=== PATIENT | male | born 1960 | race Hispanic/Latino ===

== ENCOUNTER 2020-01-17 18:23 | Inpatient (IN) | payer BC ==
--- OUTSIDE RECORDS SUMMARY | 2020-01-17 18:25 | XMS REPORT | Continuity of Care Document ---
:1960 Author Organization [facility] t Address [address] [place] [address] Care Team Providers Name Role Phone Jayy Bloom Attending Clinician Lab, Adc Fam Pob I Attending Clinician Unavailable Doctor Unassigned, Name Attending Clinician Unavailable Problems Condition Condition Condition Status Onset Resolution Last Treating Co mments Source Name Details Category Date Date Treatment Clinician Date Hyperlipid Hyperlipid Problem Active [facility] Heel pain Heel pain Problem [facility] Degenerati Degenerati Problem Active [facility] on of [facility] - lumbar or lumbar or Jacques kyle lumbosacra lumbosacra l l l Outpati interverte interverte en t bral disc bral disc Clin ics Carpal Carpal Problem Active [facility] tunnel tunnel [facility] - syndrome syndrome Memori a of left of left l wrist wrist [facility] Personal Personal Problem Active [facility] history of history of Sabrina kes - colonic colonic Memoria polyps polyps l [facility] Vitamin D Vitamin D Problem Active [facility] deficiency deficiency Sabrina kes - [facility]oria [facility] Carpal Carpal Problem Active [facility] tunnel tunnel [facility] - syndrome syndrome Memori a l [facility] Hemorrhoid Hemorrhoid Problem Active [facility] Nonalcohol Nonalcohol Problem Active C [facility] ic fatty ic fatty [facility] - liver liver Memoria disease disease l [facility] BPH BPH Problem Active [facility] without without [facility] - urinary urinary Memoria obstructio obstructio l n n [facility] Carpal Carpal Problem Active [facility] tunnel tunnel [facility] - syndrome syndrome Memori a of right of right l wrist wrist [facility] Upper Upper Diagnosis Active [facility] respirator respirator Sabrina kes - y tract y tract Memoria infection, infection, l unspecifie unspecifie Ou tpati d type d type ent Clinics Real time Real time Diagnosis Active C [facility] reverse reverse [facility] - transcript transcript Me moria ase PCR ase PCR l positive positive Outpat i for for ent COVID-19 COVID-19 Clinic s virus virus Nausea Nausea Diagnosis Active [facility] Allergies, Adverse Reactions, Alerts This patient has no known allergies or adverse reactions. Medications Ordered Filled Start Stop Current Ordering Indication Dosage Frequency Signature Comments Components Source Medication Medication Date Date Medication? Clinician (SIG) Name Name Ondansetron Ondansetron Yes Geovany [address] [facility] [address] HCl HCl 7-28 Alvarado as needed [facility] - 00:[facility]: Memoria 00 [facility] Benzonatate Benzonatate 2019- Yes Geovany [address] [facility] 7-28 08-27 Alvarado as needed [facility] - 00:[facility]: 00:00 for Cough Memoria 00 :00 [facility] Yes Geovany [address] [facility] Sodium Sodium 1-17 Alvarado [facility]: [facility] 00 [facility] Viagra Viagra Yes Geovany 1 tablet [facility] Immunizations Ordered Filled Immunization Date Status Comments Sour e Immunization Name Name Afluria single dose Afluria single dose 2019-04-[address] [facility]00 [facility] Out[facility] Procedures This patient has no known procedures. Encounters Start End Encounter Admission Attending Care Care Encounter Source Date/Time Date/Time Type Type Clinicians Facility Department ID 2020-01-12 2020-01-12 Outpatient Anthony Bolton [id number] [facility] 08:15:00 08:15:00 [employer]es s [employer] AS [facility] 2020-01-10 2020-01-10 Telephone ELOISA Kemp [id number] 00:00:00 00:00:00 Ranlyric LUBIN [id number] H[facility]PITAL [id number] 2020-01-09 2020-01-09 Laboratory Lab, Adc [facility] [id number] 12:33:36 12:53:36 Only Fam Pob I Health [id number] [place] [id number] Professio [id number] nal [address] 2020-01-09 2020-01-09 Letter Doctor ELOISA [id number] 00:00:00 00:00:00 (Out) Unassigned, TRISTIAN [id number] [place] [facility] [id number] 2019-07-03 2019-07-03 [facility] [id number] [address] 16:18:00 16:18:00 t [facility] - [facility] Medicine Outpati ent Clinics 2019-07-03 2019-07-03 [facility] [id number] [address] 10:00:00 10:00:00 t [facility] [employer] [facility] Medicine Outpati ent Clinics 2019-05-25 2019-05-25 [facility] [id number] 16:45:00 16:45:00 t [facility] - [employer] [facility] Medicine Outpati ent Clinics 2019-04-24 2019-04-24 [facility] [id number] 08:15:00 08:15:00 t Liz[facility] [employer] [facility] Medicine Outpati ent Clinics Results This patient has no known results.
--- OUTSIDE RECORDS SUMMARY | 2020-01-17 18:25 | XMS REPORT | Summary of Care ---
:1960 Author Organization [facility] Address [address] [place] [address] Care Team Providers Name Role Phone Unavailable Primary Care Provider Unavailable Reason for Visit Reason Comments Exposure Encounter Details Date Type Department Care Team Description 01/09/2020 Laboratory Only [facility] Family Dawson Mederos, MEDICAL AND HEALTH SERVICES MANAGER [address] [place] [id number] Suspected Covid-19 [facility] Lab, Adc Fam Pob I Virus Infection [address] [place] [address] (Primary D x) [place] [address] Allergies Not on Filedocumented as of this encounter (statuses as of 01/09/2020) Medications Not on filedocumented as of this encounter (statuses as of 01/09/2020) Active Problems Not on filedocumented as of this encounter (statuses as of 01/09/2020) Social History Tobacco Use Types Packs/Day Years Used Date Never Assessed Sex Assigned at Date Recorded Not on file Job Start Date Occupation Industry Not on file Not on file Not on file Travel History Travel Start Travel End No recent travel history available. COVID-19 Exposure Response Date Recorded In the last month, have you been in contact with Yes 01/09/2020 12:35 PM CDT someone who was confirmed or suspected to have Coronavirus / COVID-19? documented as of this encounter Last Filed Vital Signs Not on filedocumented in this encounter Plan of Treatment Name Type Priority Associated Diagnoses Order S chedule COVID-19 (PCR MOLECULAR LAB Routine Suspected Covid-1 9 Virus Expected: 01/09/2020, TESTING) Infection Expires: 2020 Health Maintenance Due Date Last Done Comments HEPATITIS C (HCV) SCREEN 1960 DTaP,Tdap,and Td Vaccines (1 - 09/21/1970 Tdap) Depression Screening 1971 COLONOSCOPY 09/21/2009 Zoster Recombinant Vaccine 09/21/2009 (SHINGRIX) (1 of 2) INFLUENZA VACCINE (#1) 2020 PNEUMOCOCCAL 0-64 YEARS COMBINED Aged Out No longer eligible based on SERIES patient's age to complete this topic documented as of this encounter Results Not on filedocumented in this encounter Visit Diagnoses Diagnosis Suspected Covid-19 Virus Infection - [facility] documented in this encounter Additional Health Concerns Infection Onset Date Last Indicated Resolved Time COVID-19 Rule Out 01/09/2020 01/09/2020 documented as of this encounter Insurance Payer Benefit Plan Subscriber ID Effective Dates Phone Address Type / Group [facility] [id number] 2014-Sally [phone] [address] [place]/POS [place] t 7 [id number] [place] [address] [phone] (Work) documented as of this encounter
--- OUTSIDE RECORDS SUMMARY | 2020-01-17 18:25 | XMS REPORT ---
:1960 Author Organization [employer] Care Team Providers Name Role Phone Geovany Alvarado Provider Role Unavailable Allergies, Adverse Reactions, Alerts Substance Reaction Event Type N.K.D.A. Info Not Available Non Drug Allergy Problems Problem Type Condition Code Onset Dates Condition Statu s Problem Hyperlipidemia E78.5 Active Problem Heel pain M79.673 Active Problem Degeneration of lumbar or M51.37 Ac tive lumbosacral intervertebral disc Problem Carpal tunnel syndrome of left G56.02 Active wrist Problem Personal history of colonic polyps Z86.010 Active Problem Vitamin D deficiency E55.9 Active Problem Carpal tunnel syndrome G56.00 Activ e Problem Hemorrhoids K64.9 Active Problem Nonalcoholic fatty liver disease K76.0 Active Problem BPH without urinary obstruction N40.0 Active Assessment Upper respiratory tract infection, J06.9 Active unspecified type Assessment Real time reverse transcriptase PCR U07.1 Active positive for COVID-19 virus Assessment Nausea R11.0 Active Problem Carpal tunnel syndrome of right G56.01 Active wrist Medications Medication Code Code Instructions Start End Status Dosage System Date Date Montelukast [facility] 67303107816 10 MG Orally Jul 03, Active 1 t ablet Sodium Once a day 2019 Ondansetron HCl ND 80873386998 4 MG Orally TID January 11, Act giuseppe 1 tablet PRN Nausea 2019 as needed Viagra ND 70204964446 50 MG Orally Active 1 table t Once a day as needed Benzonatate ND 26627034809 200 MG Orally January 11Feb 10, Active 1 capsule Three times a 2019 2019 as needed day for Cough Results No Known Results Summary Purpose [employer] Submission
--- OUTSIDE RECORDS SUMMARY | 2020-01-17 18:25 | XMS REPORT | Summary of Care ---
:1960 Author Organization [facility] - Health Address [address] [place] [address] Care Team Providers Name Role Phone Unavailable Primary Care Provider Unavailable Encounter Details Date Type Department Care Team Description 01/09/2020 Letter (Out) [facility] MyChart Message s Doctor Unassigned, No 301 [facility] [place] [phone] [facility] [phone] [place] [address] Allergies Not on Filedocumented as of this [...] Travel End No recent travel history available. documented as of this encounter Last Filed Vital Signs Not on filedocumented in this encounter Plan of Treatment Date Type Specialty Care Team Description 01/09/2020 Laboratory Only Family Medicine Samantha Mederos FNP [address] [address] Arrived Lab, Adc Fam Pob I Health Maintenance Due Date Last Done Comments [...] Results Not on filedocumented in this encounter Insurance Payer Benefit Plan Subscriber ID Effective Dates Phone Address Type / Group [facility] [id number] 2014-Sally [phone] [address] P[place]/POS [place] t 7 [id number] documented as of this encounter
--- OUTSIDE RECORDS SUMMARY | 2020-01-17 18:25 | XMS REPORT | Summary of Care ---
:1960 Author Organization [facility] Address [address] [place] [address] Care Team Providers Name Role Phone Unavailable Primary Care Provider Unavailable Reason for Visit Reason Comments Results Encounter Details Date Type Department Care Team Description 01/10/2020 Telephone [facility] Jayy Kemp FNP Results [address] [phone] [place], [place] [address] Allergies Not on Filedocumented as of this encounter (statuses as of 01/10/2020) Medications Not on filedocumented as of this encounter (statuses as of 01/10/2020) Active Problems Not on filedocumented as of this encounter (statuses as of 01/10/2020) Social History Tobacco Use Types Packs/Day Years [...] filedocumented in this encounter Plan of Treatment Health Maintenance Due Date Last Done Comments [...] Results Not on filedocumented in this encounter Additional Health Concerns Infection Onset Date Last Indicated Resolved Time COVID-19 Rule Out 01/09/2020 01/09/2020 01/10/2020 2: 23 AM CDT COVID-19 Confirmed 01/09/2020 01/09/2020 documented as of this encounter Insurance Payer Benefit Plan Subscriber ID Effective Dates Phone Address Type / Group BCBS OF [facility] [id number] 2014-Sally [phone] [address] PPO/POS [place] t 7 [id number] [place] [address] documented as of this encounter
[2020-01-17] MEDS ORDERED: AZITHROMYCIN 500 MG INJ IVPB ONE (19:28)
[2020-01-17] MEDS ORDERED: NA CHLORIDE 0.9% 250 ML ONE (19:28)
[2020-01-17] MEDS ORDERED: ACETAMINOPHEN 500 MG TAB ONE (19:28)
[2020-01-17] MEDS ORDERED: dexAMETHasone 10 MG/ML VIAL ONE (19:28)
[2020-01-17] MEDS ORDERED: NA CHLORIDE 0.9% 1,000 ML ONE (19:29)
[2020-01-17] MEDS ORDERED: ALBUTEROL INHALER 60 PUFF/8 GM IH ONE (19:29)
[2020-01-17 19:59] LABS: Absolute Lymphocytes (CBC) 0.7 K/uL (0.7-4.9); Basophils % 0.2 % (0-1.3); Lymphocytes % 7.9 % (15.3-44.8); MPV 7.2 fL (7.6-11.3)
[2020-01-17 20:09] LABS: Protime INR 1.41
[2020-01-17 20:20] LABS: ALT/SGPT 62 U/L (12-78); AST/SGOT 50 U/L (15-37); Albumin 2.5 g/dL (3.4-5.0); Alkaline Phosphatase 141 U/L (45-117); BUN Blood Urea Nitrogen 10 mg/dL (7-18); Bicarbonate 25 mmol/L (21-32); Bilirubin Direct 0.4 mg/dL (0-0.2); Glucose Level 106 mg/dL (74-106); Magnesium 2.4 mg/dL (1.8-2.4); NT PRO-BNP 161 pg/mL (<125); Potassium 4.2 mmol/L (3.5-5.1); Protein, Total 8.1 g/dL (6.4-8.2); Sodium Level 136 mmol/L (136-145); Troponin (Emerg Dept Use Only) < 0.02 ng/mL (0.0-0.045)
--- NOTE | 2020-01-17 20:43 | EDPHYS ---
Physician Documentation [facility] Name: Richard Ramos Age: 59 yrs Sex: Male : 1960 Arrival Date: 01/17/2020 Time: 18:26 Bed 2 Private MD: ED Physician Pastor Gan HPI: 01/16 18:59 This 59 yrs old Male presents to ER via Ambulatory with complaints of Covid+, cp Low Oxygen, Headache, Diarrhea. 18:59 The patient has shortness of breath at rest. cp 18:59 Onset: The symptoms/episode began/occurred 1 week(s) ago. cp 18:59 Duration: The symptoms are continuous, and are steadily getting worse. cp 19:00 The patient's shortness of breath is aggravated by light activity, talking. Associated cp signs and symptoms: Pertinent positives: non-productive cough, Pertinent negatives: chest pain, diaphoresis, fever. Severity of symptoms: in the emergency department the symptoms are unchanged despite home interventions. Historical: - Allergies: 18:34 No Known Allergies; ll1 - PMHx: 18:34 Bronchitis; ll1 - PSHx: 18:34 herniated disc repair; Hernia repair; ll1 - Immunization history:: Flu vaccine is up to date. - Social history:: Smoking status: Patient denies any tobacco usage or history of. Patient/guardian denies using alcohol, street drugs, tobacco products. ROS: 19:05 Constitutional: Negative for body aches, chills, fever, poor PO intake. cp 19:05 Eyes: Negative for injury, pain, redness, and discharge. cp 19:05 ENT: Negative for ear pain, sore throat, difficulty swallowing, difficulty handling secretions. 19:05 Neck: Negative for stiffness. 19:05 Cardiovascular: Negative for chest pain, edema, palpitations. 19:05 Respiratory: Positive for cough, "sounds productive", shortness of breath, at rest. Negative for wheezing. 19:05 Abdomen/GI: Negative for abdominal pain, nausea, vomiting, and diarrhea. 19:05 Back: Negative for radiated pain. 19:05 Skin: Negative for rash. 19:05 Neuro: Negative for altered mental status, headache, syncope, weakness. 19:05 All other systems are negative. Exam: 19:12 Head/Face: Normocephalic, atraumatic. cp 19:12 Constitutional: The patient appears alert, awake, non-diaphoretic, non-toxic, well developed, well nourished, in obvious distress, mildly distressed. 19:12 Eyes: Periorbital structures: appear normal, Pupils: equal, round, and reactive to cp light and accomodation, Extraocular movements: intact throughout, Conjunctiva: normal, no exudate, no injection, Sclera: no appreciated abnormality, Lids and lashes: appear normal, bilaterally. 19:12 ENT: External ear(s): are unremarkable, Nose: is normal, Mouth: Lips: moist, Oral mucosa: pink and intact, moist, Posterior pharynx: is normal, airway is patent, no erythema, no exudate. 19:12 Neck: ROM/movement: is normal, is supple, without pain, no range of motions limitations, no meningismus, Lymph nodes: no appreciated lymphadenopathy. 19:12 Chest/axilla: Inspection: normal, Palpation: is normal, no crepitus, no tenderness. 19:12 Cardiovascular: Rate: normal, Rhythm: regular, Heart sounds: murmur, not appreciated, rub, not appreciated, gallop, not appreciated, Edema: is not appreciated, JVD: is not appreciated. 19:12 Respiratory: mild respiratory distress is noted, Respirations: labored breathing, that is mild, accessory muscle usage, is absent, intercostal retractions, are absent, shallow respirations, that is mild, tachypnea, that is mild, Breath sounds: bronchial sounds, that are mild, are heard diffusely, stridor, is not appreciated, + upper airway congestion. wheezing: is not appreciated. 19:12 Abdomen/GI: Inspection: abdomen appears normal, Bowel sounds: active, all quadrants, Palpation: abdomen is soft and non-tender, in all quadrants. 19:12 Back: pain, is absent, ROM is normal. 19:12 Skin: no rash present. 19:12 Neuro: Orientation: to person, place \\T\\ time. Mentation: is normal, Cerebellar function: is grossly normal, Motor: moves all fours, strength is normal, Sensation: is normal. 19:46 ECG was reviewed by the Attending Physician. Vital Signs: 18:30 BP 150 / 82; Pulse 93; Resp 22; Temp 98.3; Pulse Ox 92% ; Weight 79.38 kg; Height 5 ft. ll1 8 in. (172.72 cm); Pain 10/10; 20:00 BP 130 / 83; Pulse 93; Resp 22; Pulse Ox 95% on R/A; wh 21:02 BP 126 / 83; Pulse 92; Resp 22; Pulse Ox 97% on R/A; wh 18:30 Body Mass Index 26.61 (79.38 kg, 172.72 cm) ll1 MDM: 20:00 Differential diagnosis: CHF exacerbation, Chronic Obstructive Pulmonary Disease cp Myocardial Infarction pneumonia, Pneumothorax pulmonary edema, Pulmonary Embolism Sepsis Unstable Angina respiratory distress. 20:40 Data reviewed: vital signs, nurses notes, lab test result(s), EKG, radiologic studies, cp plain films, I have discussed the patient's presentation/case with the attending Emergency Department Physician; and as a result, I will admit patient. 20:40 Data interpreted: playground monitor: Interpretation: normal rate, normal rhythm, Pulse cp oximetry: on 4L(s) per nasal canula, is 95 %. Plan: O2 by Mask applied. Test interpretation: by ED physician or midlevel provider: ECG, chest xray shows bilateral infiltrates. Counseling: I had a detailed discussion with the patient and/or guardian regarding: the historical points, exam findings, and any diagnostic results supporting the discharge/admit diagnosis, lab results, radiology results, the need for further work-up and treatment in the hospital. Response to treatment: the patient's symptoms have mildly improved after treatment. Physician consultation: Jason Ybarra MD was called at 20:40, was contacted at 20:40, regarding admission, to the telemetry unit. patient's condition. 20:42 Patient medically screened. 01/16 19:03 Order name: Basic Metabolic Panel; Complete Time: 20:21 cp 01/16 20:21 Interpretation: Reviewed. 01/16 19: Order name: CBC with Diff; Complete Time: 20:21 cp 01/16 20:21 Interpretation: Normal except: RBC 3.90; HGB 12.6; HCT 35.0; PLT 580; MPV 7.2; HARVEY% cp 82.5; LYM% 7.9. 01/16 19: Order name: LFT's; Complete Time: 20:21 cp 01/16 20:21 Interpretation: Normal except: AST 50; ALK 141; BILID 0.4; ALB 2.5; GLOB 5.6; A/G 0.4. cp 08/ 19:03 Order name: Magnesium; Complete Time: 20:37 cp 08/ 19:03 Order name: NT PRO-BNP; Complete Time: 20:37 cp 08/ 19:03 Order name: PT-INR; Complete Time: 20:37 cp / 20:37 Interpretation: PT 16.5; Reviewed. cp / 19:03 Order name: Troponin (emerg Dept Use Only); Complete Time: 20:22 cp 08/ 20:22 Interpretation: Within normal limits: TROPED < 0.02. cp 08/ 19:03 Order name: D-Dimer; Complete Time: 20:37 cp 08/ 20:37 Interpretation: Abnormal: D-DIMER 543. cp 08/ 19:03 Order name: CRP; Complete Time: 20:21 cp 01/16 20:21 Interpretation: Abnormal: C-REACTIVE PROT 238.00. cp / 19:03 Order name: Lactate; Complete Time: 20:21 cp 08 19:03 Order name: Procalcitonin; Complete Time: 20:37 cp 01/16 19:03 Order name: Blood Culture Adult (2) cp 08/ 19:03 Order name: Influenza Screen (a \\T\\ B) cp 08/ 19:04 Order name: Strep cp / 21:09 Order name: Throat Culture EDMS / 21:20 Order name: CBC with Automated Diff EDMS 01/16 21:20 Order name: CBC with Automated Diff EDMS 01/16 21:20 Order name: Comprehensive Metabolic Panel EDMS 01/16 21:20 Order name: Comprehensive Metabolic Panel EDMS / 21:20 Order name: Lactate EDMS 01/16 21:20 Order name: Lactate EDMS 01/16 21:20 Order name: Lipid Profile EDMS / 21:20 Order name: Lipid Profile EDMS / 21:20 Order name: Magnesium EDMS / 21:20 Order name: Magnesium EDMS 01/16 21:20 Order name: NT PRO-BNP EDMS 01/16 21:20 Order name: NT PRO-BNP EDMS 01/16 21:20 Order name: Phosphorus EDMS 01/16 21:20 Order name: Phosphorus EDTX 01/16 21:20 Order name: Protime (+INR) EDTX 01/16 19:03 Order name: XRAY Chest (1 view) 01/16 19:03 Order name: EKG; Complete Time: 19:04 cp 01/16 19:03 Order name: Cardiac monitoring; Complete Time: 19:46 cp 01/16 19:03 Order name: EKG - Nurse/Tech; Complete Time: 19:46 cp 01/16 19:03 Order name: IV Saline Lock; Complete Time: 19:46 cp 01/16 19:03 Order name: Labs collected and sent; Complete Time: 19:46 cp 01/16 19:03 Order name: O2 Per Protocol; Complete Time: 19:46 cp 01/16 19:03 Order name: O2 Sat Monitoring; Complete Time: 19:46 cp 01/16 20:38 Order name: CT Chest For PE Angio 01/16 21:20 Order name: CONS Physician Consult EDTX 01/16 21:20 Order name: Heart Healthy EDTX 01/16 21:20 Order name: Protime (+INR) EDTX 01/16 21:20 Order name: PTT, Activated Partial Thromb EDTX 01/16 21:20 Order name: PTT, Activated Partial Thromb EDTX 01/16 21:22 Order name: C-Reactive Protein EDTX 01/16 21:22 Order name: D-Dimer EDTX 01/16 21:22 Order name: Ferritin EDTX 01/16 21:22 Order name: Lactic Dehydrogenase EDMS EC:46 Rate is 94 beats/min. Rhythm is regular. OK interval is prolonged at 212 msec. QRS cp interval is normal. QT interval is normal. T waves are Inverted in leads III, aVR. Interpreted by me. Reviewed by me. Administered Medications: 19:40 Drug: Decadron - Dexamethasone 10 mg Route: IVP; Site: left forearm; 21:03 Follow up: Response: No adverse reaction 19:43 Drug: Tylenol 1000 mg Route: PO; 21:03 Follow up: Response: No adverse reaction; Pain is decreased 19:45 Drug: NS 0.9% 1000 ml Route: IV; Rate: 1000 ml/hr; Site: left forearm; 21:03 Follow up: Response: No adverse reaction; IV Status: Completed infusion 19:46 Drug: Albuterol HFA Inhaler 2 puffs Route: Inhalation; 21:03 Follow up: Response: No adverse reaction 19:47 Drug: Zithromax 500 mg Route: IVPB; Infused Over: 1 hrs; Site: left forearm; 21:03 Follow up: Response: No adverse reaction; IV Status: Completed infusion Disposition: 01/17 04:28 Co-signature as Attending Physician, Pastor Gan MD I agree with the assessment and [facility] plan of care. Disposition: 01/17/20 20:42 Hospitalization ordered by Jason Ybarra for Inpatient Admission. Preliminary diagnosis are Coronavirus infection, unspecified, Pneumonia due to other specified infectious organisms, Hypoxemia. - Bed requested for Telemetry/MedSurg (Inpatient). - Status is Inpatient Admission. - Condition is Fair. - Problem is new. - Symptoms have improved. Signatures: Dispatcher [employer] EDMS Renetta Hayward RN RN Kuldeep Bergeron PA PA Raúl Perez Pastor Gan MD MD [facility] Ashley Guaman RN RN ll1 Corrections: (The following items were deleted from the chart) 01/16 20:59 20:42 Hospitalization Ordered by Jason Ybarra MD for Inpatient Admission. Preliminary diagnosis is Coronavirus infection, unspecified; Pneumonia due to other specified infectious organisms; Hypoxemia. Bed requested for Telemetry/MedSurg (Inpatient). Status is Inpatient Admission. Condition is Fair. Problem is new. Symptoms have improved. 01/17 00:52 01/16 20:59 01/17/2020 20:42 Hospitalization Ordered by Jason Ybarra MD for Inpatient Admission. Preliminary diagnosis is Coronavirus infection, unspecified; Pneumonia due to other specified infectious organisms; Hypoxemia. Bed requested for [facility] ER HOLD. Status is Inpatient Admission. Condition is Fair. Problem is new. Symptoms have improved. 01/17 02:23 00:52 01/17/2020 20:42 Hospitalization Ordered by Jason Ybarra MD for Inpatient Admission. Preliminary diagnosis is Coronavirus infection, unspecified; Pneumonia due to other specified infectious organisms; Hypoxemia. Bed requested for Telemetry/MedSurg (Inpatient). Status is Inpatient Admission. Condition is Fair. Problem is new. Symptoms have improved.
--- NOTE | 2020-01-17 20:43 | ER ---
Nurse's Notes [facility] Name: Richard Ramos Age: 59 yrs Sex: Male : 1960 Arrival Date: 01/17/2020 Time: 18:26 Bed 2 Private MD: Diagnosis: Coronavirus infection, unspecified;Pneumonia due to other specified infectious organisms;Hypoxemia Presentation: 01/16 18:30 Chief complaint: Patient states: Covid + for 1 week. SOB and right sided ELLIOTT for 1 week. ll1 + nausea. Dr. Alvarado told him if he gets worse, go to ER. Fever 100 at home. Coronavirus screen: Client denies travel out of the [place] in the last 14 days. chills, cough unrelated to allergies, difficulty breathing, fatigue, headache, nausea, shortness of breath. Coronavirus screen: Client presents with at least one sign or symptom that may indicate coronavirus-19. Standard/surgical mask placed on the client. Coronavirus screen: Client reports previous positive COVID test result. Ebola Screen: Patient denies travel to an Ebola-affected area in the 21 days before illness onset. Initial Sepsis Screen: Does the patient meet any 2 criteria? HR > 90 bpm. Does the patient have a suspected source of infection? Yes: Productive cough/pneumonia. Risk Assessment: Do you want to hurt yourself or someone else? Patient reports no desire to harm self or others. Onset of symptoms was January 10, 2020. 18:30 Method Of Arrival: Ambulatory ll1 18:30 Acuity: JAREN 2 ll1 Triage Assessment: 19:30 Headache History: The patient has had previous headaches and this one is similar to wh previous episodes. 19:30 Pain: Pain currently is 4 out of 10 on a pain scale. Pain began a few days ago Also wh complains of no other associated symptoms. Historical: - Allergies: 18:34 No Known Allergies; ll1 - PMHx: 18:34 Bronchitis; ll1 - PSHx: 18:34 herniated disc repair; Hernia repair; ll1 - Immunization history:: Flu vaccine is up to date. - Social history:: Smoking status: Patient denies any tobacco usage or history of. Patient/guardian denies using alcohol, street drugs, tobacco products. Screenin:30 Abuse screen: Denies threats or abuse. Denies injuries from another. Nutritional wh screening: No deficits noted. Tuberculosis screening: No symptoms or risk factors identified. Fall Risk None identified. Assessment: 19:15 General: Appears in no apparent distress. Behavior is calm, cooperative, appropriate wh for age. Pain: Complains of pain in Headache. Neuro: Level of Consciousness is awake, alert, obeys commands, Oriented to person, place, time, situation, Appropriate for age Reports headache. Cardiovascular: Heart tones S1 S2 Rhythm is regular. Respiratory: Reports shortness of breath at rest Airway is patent Respiratory effort is even, Respiratory pattern is tachypnea Breath sounds are clear bilaterally. GI: Abdomen is flat, non-distended. : No signs and/or symptoms were reported regarding the genitourinary system. EENT: Throat is pink. Derm: Skin is intact, is healthy with good turgor, Skin is pink, warm \T\ dry. normal. Musculoskeletal: Circulation, motion, and sensation intact. 20:45 Reassessment: Patient appears in no apparent distress at this time. No changes from previously documented assessment. Patient and/or family updated on plan of care and expected duration. Pain level reassessed. Patient is alert, oriented x 3, equal unlabored respirations, skin warm/dry/pink. Vital Signs: 18:30 BP 150 / 82; Pulse 93; Resp 22; Temp 98.3; Pulse Ox 92% ; Weight 79.38 kg; Height 5 ft. ll1 8 in. (172.72 cm); Pain 10/10; 20:00 BP 130 / 83; Pulse 93; Resp 22; Pulse Ox 95% on R/A; wh 21:02 BP 126 / 83; Pulse 92; Resp 22; Pulse Ox 97% on R/A; wh 18:30 Body Mass Index 26.61 (79.38 kg, 172.72 cm) ll1 ED Course: 18:26 Patient arrived in ED. bp1 18:33 Triage completed. ll1 18:35 Arm band placed on Patient placed in an exam room, on a stretcher. ll1 18:45 Kuldeep Bergeron PA is PHCP. cp 18:45 Jason Henley MD is Attending Physician. cp 18:47 Kuldeep Bergeron PA is PHCP. cp 18:47 Jason Henley MD is Attending Physician. cp 19:07 Raúl Perez is Primary Nurse. 19:30 Patient has correct armband on for positive identification. Bed in low position. Call light in reach. Side rails up X 1. packing room worker on. Pulse ox on. NIBP on. 19:30 Inserted saline lock: 20 gauge in left forearm, using aseptic technique. Blood wh collected. 19:53 Pastor Gan MD is Attending Physician. 20:11 XRAY Chest (1 view) In Process Unspecified. EDMS 20:15 Notified ED physician of a critical lab result(s). D dimer 543. rr5 20:41 Jason Ybarra MD is Hospitalizing Provider. 21:00 No provider procedures requiring assistance completed. Patient admitted, IV remains in place. 22:01 CT Chest For PE Angio In Process Unspecified. EDMS Administered Medications: 19:40 Drug: Decadron - Dexamethasone 10 mg Route: IVP; Site: left forearm; 21:03 Follow up: Response: No adverse reaction 19:43 Drug: Tylenol 1000 mg Route: PO; 21:03 Follow up: Response: No adverse reaction; Pain is decreased 19:45 Drug: NS 0.9% 1000 ml Route: IV; Rate: 1000 ml/hr; Site: left forearm; 21:03 Follow up: Response: No adverse reaction; IV Status: Completed infusion 19:46 Drug: Albuterol HFA Inhaler 2 puffs Route: Inhalation; 21:03 Follow up: Response: No adverse reaction 19:47 Drug: Zithromax 500 mg Route: IVPB; Infused Over: 1 hrs; Site: left forearm; 21:03 Follow up: Response: No adverse reaction; IV Status: Completed infusion Outcome: 20:42 Decision to Hospitalize by Provider. 21:00 Admitted to ER Hold. Please see [facility] for further documentation. 21:00 Condition: stable 21:00 Instructed on the need for admit. 01/17 02:11 Admitted to Tele accompanied by nurse, via wheelchair, room 414, with oxygen, with chart, Report called to Venita GRANT Condition: stable Instructed on the need for admit. 02:23 Patient left the ED. Signatures: [facility] Kuldeep Bergeron PA PA Raúl Perez Johnny Purvis RN RN rr5 Ashley Guaman RN RN ll1 Nori Navarro [facility]: (The following items were deleted from the chart) 01/16 21:00 19:15 Neuro: Level of Consciousness is awake, alert, obeys commands, Oriented to person, place, time, situation, Appropriate for age : 19:15 Pain: Denies pain. [facility] 21:06 Notified ED physician of a critical lab result(s). D dimer 543 rr5 rr5 01/17 02:23 02:11 Admitted to Tele accompanied by tech, via wheelchair, room 414, with oxygen, with chart, Report called to Venita GRANT
--- NOTE | 2020-01-17 20:52 | RAD REPORT ---
EXAM DESCRIPTION: [facility] Single View01/17/2020 8:10 pm CLINICAL HISTORY: Shortness breath COMPARISON: 2015 FINDINGS: Moderate bilateral pulmonary opacities The heart is normal size IMPRESSION: Moderate bilateral pulmonary opacities may indicate Covid pneumonia
[2020-01-17] MEDS ORDERED: ONDANSETRON 4 MG/2 ML VIAL IV PRN (21:15)
[2020-01-17] MEDS: ENOXAPARIN 40 MG/0.4 ML SQ SCH (22:00)
[2020-01-17] MEDS: CEFTRIAXONE/SWI 1gm 1 GM/10 ML SYR IV SCH (23:00)
[2020-01-17] MEDS ORDERED: METHYLPREDNISOLONE 125 MG INJ ONE (23:14)
[2020-01-17] MEDS ORDERED: CEFTRIAXONE/SWI 1gm 1 GM/10 ML SYR ONE (23:15)
[2020-01-17] MEDS: METHYLPREDNISOLONE 125 MG INJ IV SCH (23:22)
[2020-01-18 02:58] VITALS: BMI 26.2
[2020-01-18] MEDS: METHYLPREDNISOLONE 125 MG INJ IV SCH ×3 (05:15→17:03)
--- NOTE | 2020-01-18 06:06 | P.HP ---
Certification for Inpatient Patient admitted to: Inpatient With expected LOS: >2 Midnights Patient will require the following post-hospital care: None Practitioner: I am a practitioner with admitting privileges, knowledge of patient current condition, hospital course, and medical plan of care. Services: Services provided to patient in accordance with Admission requirements found in Title 42 Section 412.3 of the Code of Federal Regulations Patient History Date of Service: 01/17/20 Reason for admission: COVID-19 PNEUMONIA History of Present Illness: Patient is a 59yo who was admitted to the hospital with shortness of breath. Patient was diagnosed with COVID-19 about a week ago. This was done in [facility]. Patient continued to get worse and started having severe headaches so came into our ER last night. In the emergency room patient's chest x-ray showed bilateral infiltrates suggestive of suggest significant COVID-19 pneumonia. Patient is hypoxic and requiring oxygen. Patient gets short of breath and fatigue on ambulation. Patient will was treated with IV steroids and IV antibiotics in the emergency room and is feeling better. Patient will be admitted for 24-48 hours and if it is improving possible discharge. If patient's condition worsen then he will have to stay further. Allergies No Known Allergies Allergy (Uncoded 01/17/20 23:01) Unknown Home Medications: NK [No Home Meds] 01/17/20 - Past Medical/Surgical History Has patient received pneumonia vaccine in the past: No Diabetic: No -: Bronchitis -: Herniated Disc - Family History Father Family History: Reviewed- Non-Contributory - Social History Smoking Status: Never smoker Place of Residence: Home Review of Systems 10-point ROS is otherwise unremarkable Physical Examination - Vital Signs Temperature: 97.9 F Blood Pressure: 127/74 Pulse: 77 Respirations: 20 Pulse Ox (%): 97 - Physical Exam General: Alert, In no apparent distress, Oriented x3 HEENT: Atraumatic, PERRLA, Mucous membr. moist/pink, EOMI, Sclerae nonicteric Neck: Supple, 2+ carotid pulse no bruit, No LAD, Without JVD or thyroid abnormality Respiratory: Other (coarse BS) Cardiovascular: Regular rate/rhythm, Normal S1 S2 Gastrointestinal: Normal bowel sounds, No tenderness Musculoskeletal: No tenderness Integumentary: No rashes Neurological: Normal gait, Normal speech, Normal strength at 5/5 x4 extr, Normal tone, Normal affect Lymphatics: No axilla or inguinal lymphadenopathy - Studies Laboratory Data (last 24 hrs) 01/17/20 19:30: PT 16.5 H, INR 1.41 01/17/20 19:30: WBC 8.8, Hgb 12.6 L, Hct 35.0 L, Plt Count 580 H 01/17/20 19:30: Sodium 136, Potassium 4.2, BUN 10, Creatinine 0.74, Glucose 106, Magnesium 2.4, Total Bilirubin 1.0, AST 50 H, ALT 62, Alkaline Phosphatase 141 H Microbiology Data (last 24 hrs): 01/17/20 19:30 Throat Group A Streptococcus Rapid Screen - Final 01/17/20 19:30 Nasopharnyx Influenza Type A Antigen Screen - Final 01/17/20 19:30 Nasopharnyx Influenza Type B Antigen Screen - Final Assessment & Plan - Problems (Diagnosis) (1) Pneumonia due to COVID-19 virus Current Visit: Yes Status: Acute - Plan 1. Continue with IV antibiotics 2. COVID-19 pneumonia 3. Repeat chest x-ray is symptoms are progressively worsening 4. O2 per protocol 5. Pulmonary consultation 6. Continue with albuterol inhaler therapy; IV dexamethasone; zinc and vitamin-C 7. O2 per protocol 8. Monitor LFTs 9. Repeat labs including D-dimer, ferritin, and CRP and LFTs 10. GI and DVT prophylaxis Discharge Plan: Home Plan to discharge in: Greater than 2 days - Advance Directives Does patient have a Living Will: No Does patient have a Durable POA for Healthcare: No - Code Status/Comfort Care Code Status Assessed: Yes Code Status: Full Code Critical Care: No Time Spent Managing PTS Care (In Minutes): 45
[2020-01-18 07:07] LABS: Absolute Lymphocytes (CBC) 0.8 K/uL (0.7-4.9); Basophils % 0.4 % (0-1.3); Hematocrit 31.8 % (39.6-49.0); Lymphocytes % 16.3 % (15.3-44.8); MPV 7.5 fL (7.6-11.3); RBC Red Blood Cell Count 3.54 M/uL (4.33-5.43)
[2020-01-18 07:12] LABS: Protime INR 1.39
[2020-01-18 07:19] LABS: ALT/SGPT 56 U/L (12-78); AST/SGOT 37 U/L (15-37); Albumin 2.3 g/dL (3.4-5.0); Alkaline Phosphatase 129 U/L (45-117); BUN Blood Urea Nitrogen 13 mg/dL (7-18); Bicarbonate 26 mmol/L (21-32); Bilirubin Total 0.6 mg/dL (0.2-1.0); Glucose Level 204 mg/dL (74-106); HDL Cholesterol 29 mg/dL (40-60); LDL Cholesterol, Calculated 66 (<130); Magnesium 2.6 mg/dL (1.8-2.4); NT PRO-BNP 129 pg/mL (<125); Phosphorus 3.5 mg/dL (2.5-4.9); Potassium 4.5 mmol/L (3.5-5.1); Protein, Total 7.7 g/dL (6.4-8.2); Sodium Level 137 mmol/L (136-145)
[2020-01-18 07:42] LABS: Ferritin 1880.6 ng/mL (26-388)
[2020-01-18] MEDS: CEFTRIAXONE/SWI 1gm 1 GM/10 ML SYR IV SCH ×2 (08:32→21:00)
[2020-01-18] MEDS: ENOXAPARIN 40 MG/0.4 ML SQ SCH ×2 (08:33→21:02)
[2020-01-18] MEDS ORDERED: AZITHROMYCIN IV 500 MG in NA CHLORIDE 0.9% 250 ML IVPB SCH (09:00)
--- NOTE | 2020-01-18 10:00 | RAD REPORT ---
EXAM DESCRIPTION: CT - Chest For Pe Angio - 01/18/2020 3:30 am CLINICAL HISTORY: The patient is 59 years old and is Male; Cough;SOB TECHNIQUE: Axial computed tomographic angiography images of the chest with intravenous contrast. S agittal and coronal reformatted images were created and reviewed. This CT exam was performed using one or more of the following dose reduction techniques: automated exposure control, adjustment of t he mA and/or kV according to patient size, and/or use of iterative reconstruction technique. MIP reconstructed images were created and reviewed. COMPARISON: No relevant prior studies available. FINDINGS: ARTIFACTS: The exam is suboptimal secondary to motion artifact. PULMONARY ARTERIES: There are no obvious filling defects identified within the pulmonary arterie s to suggest pulmonary embolism. AORTA: No acute findings. No thoracic aortic aneurysm. LUNGS: Bilateral diffuse peripheral groundglass opacities throughout the lungs are present. PLEURAL SPACE: Small bilateral pleural effusions are present. No pneumothorax. HEART: Unremarkable. No cardiomegaly. No significant pericardial effusion. No evidence of RV dysfunction. BONES/JOINTS: No acute fracture. No dislocation. SOFT TISSUES: Unremarkable. LYMPH NODES: Unremarkable. No enlarged lymph nodes. LIVER: The liver is prominent. IMPRESSION: 1. No evidence of pulmonary embolism. 2. Commonly reported imaging features of (COVID-19 or viral) pneumonia are present. Other processes such as influenza pneumonia and organizing pneumonia, as can be seen with drug toxicity and connecti ve tissue disease, can cause a similar imaging pattern. [id number] Electronically signed by: Jada Hager MD 01/17/2020 10:17 PM CDT Due to temporary technical issues with the PACS/Fluency reporting system, reports are being signed by the in house radiologist without review as a courtesy to ensure prompt reporting. The interpreting r adiologist is fully responsible for the content of the report.
--- NOTE | 2020-01-18 12:35 | P.CNS ---
Date of Consult: 01/18/20 Chief Complaint: COVID-19 PNEUMONIA History of Present Illness: Patient is 59 years of age admitted with shortness of breath history of coronal virus infection in continue to get worse admitted with respiratory failure from mane virus Allergies No Known Allergies Allergy (Uncoded 01/17/20 23:01) Unknown Home Medications: NK [No Home Meds] 01/17/20 - Past Medical/Surgical History Diabetic: No -: Bronchitis -: Herniated Disc - Family History Father Family History: Reviewed- Non-Contributory - Social History Place of Residence: Home Review of Systems General: Weakness Respiratory: Shortness of Breath Physical Examination Temp Pulse Resp BP Pulse Ox 97.9 F 77 20 127/74 97 01/18/20 09:44 01/18/20 09:44 01/18/20 09:44 01/18/20 09:44 01/18/20 09:44 Laboratory Data (last 24 hrs) 01/17/20 19:30: PT 16.5 H, INR 1.41 01/17/20 19:30: WBC 8.8, Hgb 12.6 L, Hct 35.0 L, Plt Count 580 H 01/17/20 19:30: Sodium 136, Potassium 4.2, BUN 10, Creatinine 0.74, Glucose 106, Magnesium 2.4, Total Bilirubin 1.0, AST 50 H, ALT 62, Alkaline Phosphatase 141 H - Problems (1) Pneumonia due to COVID-19 virus Current Visit: Yes Status: Acute Plan: Patient is 59 years of age admitted with respiratory failure from mane virus is CT scan is very characteristic I agree with high doses of steroids patient is 97% on 3 L of oxygen and for discharge once air CRP level is less than 20
[2020-01-18] MEDS: THIAMINE 200 MG/2 ML INJ IVP SCH (13:46)
[2020-01-18] MEDS: ASCORBIC ACID 500 MG TABLET PO SCH ×2 (13:46→21:00)
[2020-01-18] MEDS ORDERED: MELATONIN 3 MG TABLET PO SCH (21:00)
[2020-01-18] MEDS ORDERED: ATORVASTATIN 40 MG TAB PO SCH (21:00)
[2020-01-19] MEDS: METHYLPREDNISOLONE 125 MG INJ IV SCH ×3 (00:02→11:02)
--- NOTE | 2020-01-19 06:58 | P.PN ---
Subjective Date of Service: 01/18/20 Inflammatory markers are very high. Patient continues to gradually improve. However, because of the levels of his markers would continue to treat him aggressively with IV steroids in the hospital as he could relapse at home without aggressive anti-inflammatory treatment. His symptoms have gradually worsened over the week. His lung findings on his chest x-ray are impressive and he may have chronic issues going forward. He will need follow-up with Pulmonary at [place]. Review of Systems 10-point ROS is otherwise unremarkable Physical Examination - Vital Signs Temperature: 97.9 F Blood Pressure: 127/74 Pulse: 77 Respirations: 20 Pulse Ox (%): 97 - Physical Exam General: Alert, In no apparent distress, Oriented x3 Respiratory: Other (coarse BS) Cardiovascular: Regular rate/rhythm, Normal S1 S2 Gastrointestinal: Normal bowel sounds, Soft and benign, Non-distended, No tenderness Musculoskeletal: No clubbing, No swelling, No tenderness Neurological: Normal tone, Sensation intact, Cranial nerves 3-12 intact Lymphatics: No axilla or inguinal lymphadenopathy - Studies Medications List Reviewed: Yes Assessment & Plan - Problems (Diagnosis) (1) Pneumonia due to COVID-19 virus Current Visit: Yes Status: Acute (2) Hypoxemia Current Visit: Yes Status: Acute - Plan 1. Continue with IV antibiotics & IV steroids 2. COVID-19 pneumonia 3. Repeat chest x-ray if symptoms are progressively worsening 4. O2 per protocol 5. Pulmonary consultation 6. Continue with albuterol inhaler therapy; IV dexamethasone; zinc and vitamin-C 7. O2 per protocol 8. Monitor LFTs 9. Repeat labs including D-dimer, ferritin, and CRP and LDH; monitor trend 10. GI and DVT prophylaxis Discharge Plan: Home Plan to discharge in: Greater than 2 days - Advance Directives Does patient have a Living Will: No Does patient have a Durable POA for Healthcare: No - Code Status/Comfort Care Code Status: Full Code Critical Care: No Time Spent Managing PTS Care (In Minutes): 45
[2020-01-19] MEDS: CEFTRIAXONE/SWI 1gm 1 GM/10 ML SYR IV SCH (07:28)
[2020-01-19] MEDS: THIAMINE 200 MG/2 ML INJ IVP SCH (07:29)
[2020-01-19] MEDS: ASCORBIC ACID 500 MG TABLET PO SCH ×2 (07:29→13:07)
[2020-01-19] MEDS: ENOXAPARIN 40 MG/0.4 ML SQ SCH (07:32)
[2020-01-19] MEDS ORDERED: VITAMIN D 1000 UNIT TAB PO SCH (09:00)
--- NOTE | 2020-01-19 09:00 | P.DS ---
Admission Date: 01/17/20 Discharge Date: 01/19/20 Disposition: ROUTINE DISCHARGE Discharge Condition: GOOD Reason for Admission: COVID-19 PNEUMONIA - Problems (1) Hypoxemia Current Visit: Yes Status: Acute (2) Pneumonia due to COVID-19 virus Current Visit: Yes Status: Acute Hospital Course: Patient is a 59-year-old male who was admitted to the hospital with hypoxia secondary to call the 19 pneumonia. Patient require oxygen during this hospital stay by was successfully weaned off. Was placed on antibiotics and steroids. He will be discharged home today. Vital Signs/Physical Exam: Temp Pulse Resp BP Pulse Ox 98.8 F 74 17 116/64 95 01/19/20 07:40 01/19/20 07:40 01/19/20 07:40 01/19/20 07:40 01/19/20 07:40 General: Alert, In no apparent distress, Cooperative HEENT: Atraumatic, Normocephalic Neck: Supple Respiratory: Clear to auscultation bilaterally, Normal air movement Cardiovascular: No edema, Normal pulses, Regular rate/rhythm, Normal S1 S2 Gastrointestinal: Normal bowel sounds, Soft and benign, Non-distended Musculoskeletal: No clubbing, No swelling, No contractures, No erythema, No tenderness, No warmth Integumentary: No rashes, No breakdown, No significant lesion, No tenderness/swelling, No erythema, No warmth, No cyanosis Neurological: Normal speech, Normal strength at 5/5 x4 extr, Normal affect Laboratory Data at Discharge: WBC 4.7 K/uL (4.3-10.9) D 01/18/20 06:50 Hgb 11.4 g/dL (13.6-17.9) L 01/18/20 06:50 Hct 31.8 % (39.6-49.0) L 01/18/20 06:50 Plt Count 595 K/uL (152-406) H 01/18/20 06:50 PT 16.3 SECONDS (9.5-12.5) H 01/18/20 06:50 INR 1.39 01/18/20 06:50 APTT 33.1 SECONDS (24.3-36.9) 01/18/20 06:50 Sodium 137 mmol/L (136-145) 01/18/20 06:50 Potassium 4.5 mmol/L (3.5-5.1) 01/18/20 06:50 BUN 13 mg/dL (7-18) 01/18/20 06:50 Creatinine 0.68 mg/dL (0.55-1.3) 01/18/20 06:50 Glucose 204 mg/dL (74-106) H 01/18/20 06:50 Phosphorus 3.5 mg/dL (2.5-4.9) 01/18/20 06:50 Magnesium 2.6 mg/dL (1.8-2.4) H 01/18/20 06:50 Total Bilirubin 0.6 mg/dL (0.2-1.0) 01/18/20 06:50 AST 37 U/L (15-37) 01/18/20 06:50 ALT 56 U/L (12-78) 01/18/20 06:50 Alkaline Phosphatase 129 U/L (45-117) H 01/18/20 06:50 Triglycerides 112 mg/dL (<150) 01/18/20 06:50 Cholesterol 117 mg/dL (<200) 01/18/20 06:50 HDL Cholesterol 29 mg/dL (40-60) L 01/18/20 06:50 Cholesterol/HDL Ratio 4.03 01/18/20 06:50 Home Medications: Ascorbic Acid [Vitamin C*] 500 mg PO TID #30 tablet 01/19/20 Atorvastatin Calcium [Lipitor] 40 mg PO BEDTIME #30 tab 01/19/20 Melatonin [Melatonin*] 3 mg PO BEDTIME tablet 01/19/20 Zinc Sulfate [Zinc Sulfate*] 220 mg PO BID #30 cap 01/19/20 predniSONE [Deltasone] 20 mg PO BID #14 tab 01/19/20 New Medications: Atorvastatin Calcium [Lipitor] 40 mg PO BEDTIME #30 tab predniSONE [Deltasone] 20 mg PO BID #14 tab Ascorbic Acid [Vitamin C*] 500 mg PO TID #30 tablet Zinc Sulfate [Zinc Sulfate*] 220 mg PO BID #30 cap
[2020-01-19 11:02] VITALS: BP 117/64; TEMP 98.2
--- NOTE | 2020-01-19 11:06 | EKG ---
Test Date: 2020-01-17 Test Time: 19:41:16 Tobacco Sprayer: MEASUREMENT RESULTS: Intervals: Rate: 94 ID: [id number] QRSD: 94 QT: 348 QTc: 435 [place]: P: 40 ID: [id number] QRS: -19 T: 10 INTERPRETIVE STATEMENTS: Sinus rhythm with 1st degree AV block Otherwise normal ECG Compared to ECG 02/29/2016 22:02:49 Sinus bradycardia no longer present Left-axis deviation no longer present Incomplete right bundle-branch block no longer present Electronically Signed On 01-19-20 11:03:06 CDT by David Espinoza
[2020-01-19 11:16] VITALS: O2SAT 95
== END 2020-01-19 14:17 | disposition home or self-care (01) | DRG 177 ==
LOC: ER 18:23 → ERHOLD 22:28 → 4TH 01-18 02:09
PROVIDERS: ADMIT Hospitalist; ATTEND Internal Medicine
DX: U07.1 COVID-19 (principal); J12.89 Other viral pneumonia; J96.01 Acute respiratory failure with hypoxia
CPT/HCPCS: 36415; 71045; 71275; 80048; 80053; 80061; 80076; 82728; 83605; 83615; 83735; 83880; 84100; 84145; 84484; 85025; 85379; 85610; 85730; 86140; 87040; 87070; 87081; 87804; 93005; 94760; 96365; 96375; 99285; J0456; J0696; J1100; J1650; J2930; J3411; J7030; J7050; Q9967

== ENCOUNTER 2021-05-19 08:13 | Day surgery (SDC) | payer BC ==
[2021-05-15 09:52] LABS: Protime INR 1.01
--- NOTE | 2021-05-15 10:54 | RAD REPORT ---
EXAM DESCRIPTION: RAD - Chest Pa And Lat (2 Views) - 05/15/2021 9:28 am CLINICAL HISTORY: Pre Op pending carpal tunnel surgery COMPARISON: January 2020 TECHNIQUE: Frontal and lateral views of the chest were obtained. FINDINGS: The lungs are clear. The COVID pneumonia findings of January 2020 have cleared with no rem nant scarring or cavitation. Mediastinal and hilar regions within range of normal. Heart size is norm al and central vasculature is within normal limits. No pleural effusion or pneumothorax seen. No ac precious bony finding noted. No aortic abnormality. IMPRESSION: No acute cardiopulmonary process.
[2021-05-19] MEDS ORDERED: FENTANYL CITR 100 MCG/2 ML ONE (08:50)
[2021-05-19] MEDS ORDERED: propofoL 200 MG/20 ML VIAL IV ONE ×2 (08:50→08:52)
[2021-05-19] MEDS ORDERED: LIDOCAINE 2% MPF 5 ML VIAL ONE (08:51)
[2021-05-19] MEDS ORDERED: KETOROLAC 30 MG/ML INJ ONE (08:51)
[2021-05-19] MEDS ORDERED: MIDAZOLAM HCL 2 MG/2 ML INJ ONE (08:51)
[2021-05-19] MEDS ORDERED: dexAMETHasone 10 MG/ML VIAL ONE (08:51)
[2021-05-19] MEDS ORDERED: NS 0.9% VIAL 30 ML ONE (08:51)
[2021-05-19] MEDS ORDERED: LIDOCAINE 1% MPF 30 ML VIAL ONE (08:52)
[2021-05-19] MEDS ORDERED: ONDANSETRON 4 MG/2 ML VIAL ONE ×2 (08:52→11:05)
[2021-05-19] MEDS ORDERED: Ringers Lactate 1,000 ML IV ONE (09:02)
[2021-05-19] MEDS ORDERED: CEFAZOLIN/NS 1gm 1 GM/50 ML BAG ONE (09:19)
[2021-05-19] MEDS ORDERED: BUPIVACAINE 0.25% PF 10 ML VIAL ONE (09:23)
--- NOTE | 2021-05-19 10:43 | P.BOP ---
Preoperative diagnosis: right carpal tunnel syndrome Postoperative diagnosis: same Primary procedure: right open carpal tunnel release Plant Protection Officer: NONE,NONE Estimated blood loss: 2 cc Specimen: none Findings: see dictation Anesthesia: General Complications: None Implants: none Fluids & blood products: per anesthesia record; TT: 30 mins @ 300 mmHg Transferred to: Recovery Room Condition: Good
[2021-05-19] MEDS ORDERED: CODEINE 30MG/APAP 300MG TAB ONE (11:05)
[2021-05-19 12:13] VITALS: BP 135/80; TEMP 97.4; O2SAT 99
--- NOTE | 2021-05-19 20:57 | OP ---
Date of Procedure: 05/19/2021 Surgeon: Lucho Bernabe MD Preoperative Diagnosis: Right carpal tunnel syndrome. Postoperative Diagnosis: Right carpal tunnel syndrome. Procedure Performed: Right open carpal tunnel release. Anesthesia: Ruch block anesthesia. Implants: None. Complications: None. Tourniquet Time: 30 minutes at 300 mmHg. Indication For Procedure: Richard is a 60-year-old male who presented to my clinic with signs, sym ptoms, and EMG findings consistent with right carpal tunnel syndrome. He failed conservative treatme nt measures and had significant pain. He states it is interfering with activities of daily living. I discussed with the patient at length risks and benefits associated with operative and nonoperative treatment. He expressed understanding and elected to proceed with operative treatment. Description Of Procedure: After informed consent was obtained, the patient was identified in the pre operative holding area. The right upper extremity was marked. The patient was then brought back to the operating room, transferred to the operating table in supine fashion and placed under regi block anesthesia. The right upper extremity was then prepped and draped in usual sterile fashion. A time- out was initiated. The correct patient and procedure were confirmed and identified. The patient did receive preoperative prophylactic antibiotics. Approximately, a 3 cm longitudinal incision was made just ulnar to the thenar crease. Dissection was then taken down the palmar fascia which was identif ied. A [place] elevator was placed deep to the palmar fascia protecting the median nerve at all times. A 15 blade was then used to release the palmar fascia and transverse carpal ligament to complete th e carpal tunnel release any remaining fascial bands were then released using a blunt-tip Metzenbaum w ith the tips pointing superficially at all times. The wound was then irrigated thoroughly with garry l saline. Skin was approximated using a 5-0 Prolene. Sterile dressings were applied. Tourniquet wa s let down. The patient was awakened and transferred to same-day surgery in stable condition. Postoperative Plan: The patient may begin working on range of motion exercises. He will follow up i n 1 week for wound check and suture removal. CV/MODL Voice ID: [id number] Report ID: [id number]
== END 2021-05-19 11:30 | disposition home or self-care (01) ==
LOC: OR 08:13
PROVIDERS: ATTEND Orthopaedic Surgery Sports Medicine
PROC: 01N50ZZ Release Median Nerve, Open Approach (ICD-10-PCS; principal; 2021-05-19 10:15)
DX: G56.01 Carpal tunnel syndrome, right upper limb (principal); M25.541 Pain in joints of right hand; Z20.822 Contact with and (suspected) exposure to COVID-19
CPT/HCPCS: 93005; 36415; 85610; 85730; 71046; 64721; U0002; J2704 ×2; J2250; J3010; J0690; J7120; J2405 ×2; J1100